=== PATIENT | female | born 1990 | race Caucasian/White ===

== ENCOUNTER 2025-05-15 14:38 | Outpatient (REF) | payer BC, SELFPAY ==
--- OUTSIDE RECORDS SUMMARY | 2025-05-15 13:00 | XMS_ITS | Encounter Summary ---
Author Organization [facility] Address [address] [place] [address] Care Team Providers Care Trash Truck Driver Name Role Phone Jignesh, Keith Henderson MD Primary Care Provider Reason for Visit * ReasonCommentsGynecologic Exam Encounter Details DateTypeDepartmentCare Team (Latest Contact Info)Raqullkxcvy43/01/2025 1:00 PM ESTProcedure Visit [facility] [address] [facility] [address] Esthela Morillo PA [address] [facility] [address] [place], [facility]11 Well woman exam with routine gynecological exam; H/O tubal ligation Social History Tobacco UseTypesPacks/DayYears UsedDateSmoking Tobacco: NeverAlcohol UseStandard Drinks/WeekCommentsNot Currently0 (1 standard drink = 0.6 oz pure alcohol) occasionalCommentsNoSex and Gender InformationValueDate RecordedSex Assigned at BirthNot on fileLegal CggFzpqod55/15/2023 11:47 PM EDTGender IdentityNot on fileSexual OrientationNot on filedocumented as of this encounter Last Filed Vital Signs Vital SignReadingTime TakenCommentsBlood Gyygpfss252/7005/15/2025 1:13 PM EST Pulse--Temperature--Respiratory Rate--Oxygen Saturation--Inhaled Oxygen Concentration--Gtsyuh60.8 kg (145 lb)05/15/2025 1:13 PM APYArgfzg280.9 cm (4' 11 )05/15/2025 1:13 PM ESTBody Mass Index29.29107/16/2024 1:13 PM ESTdocumented in this encounter Progress Notes * CHANDLER Boone - 05/15/2025 1:00 PM EST Reason for Appointment: Patient ID: Angie Kenny is a 35 y.o. female who presents for Gynecologic Exam Patient presents today for Annual Exam. MEDICATIONS Current Outpatient Medications Medication Instructions Allergy Relief 10 mg, Oral, Daily PRN FLUoxetine (PROZAC) 10 mg, Oral, Daily fluticasone (Flonase) 50 MCG/ACT nasal spray SHAKE LIQUID AND USE 2 SPRAYS IN EACH NOSTRIL EVERY DAY FOR 14 DAYS Levonorgestrel (Mirena, 52 MG,) 20 MCG/DAY intrauterine device as directed Intrauterine phentermine (ADIPEX-P) 37.5 mg, Oral, Daily before breakfast phentermine (ADIPEX-P) 37.5 mg, Oral, Daily before breakfast phentermine (ADIPEX-P) 37.5 mg, Oral, Daily before breakfast ALLERGIES No Known Allergies PROBLEMS Active Ambulatory Problems Diagnosis Date Noted Metrorrhagia 12/17/2022 Obesity 12/17/2022 depression 12/17/2022 Resolved Ambulatory Problems Diagnosis Date Noted No Resolved Ambulatory Problems Past Medical History: Diagnosis Date Depression screening Encounter for gynecological examination without abnormal finding In vitro fertilization Intrauterine device surveillance Obesity (BMI 30-39.9) Post depression HISTORY PAST MEDICAL HISTORY SOCIAL HISTORY Past Medical History: Diagnosis Date Depression screening Encounter for gynecological examination without abnormal finding In vitro fertilization Intrauterine device surveillance Obesity (BMI 30-39.9) Post depression Social History Tobacco Use Smoking status: Never Smokeless tobacco: Not on file Substance Use Topics Alcohol use: Not Currently Comment: occasional Drug use: Never FAMILY HISTORY Family History Problem Relation Name Age of Onset Diabetes Mother Heart disease Father No Known Problems Daughter No Known Problems Son Diabetes Maternal Grandmother SURGICAL HISTORY Past Surgical History: Procedure Laterality Date SECTION, LOW TRANSVERSE x2 POLYPECTOMY 07/2018 [facility] [place] TUBAL LIGATION 03/2016 REVIEW OF SYSTEMS Review of Systems: Review of Systems Constitutional: Negative. HENT: Negative. Eyes: Negative. Respiratory: Negative. Cardiovascular: Negative. Gastrointestinal: Negative. Genitourinary: Negative. Musculoskeletal: Negative. Skin: Negative. Neurological: Negative. All other systems reviewed and are negative. Hematological: Negative. Endocrine: Negative. Allergic/Immunologic: Negative. OBJECTIVE Objective: Physical Exam Constitutional: Appearance: Normal appearance. She is well-developed. Genitourinary: Vulva normal. Right Adnexa: not tender and no mass present. Left Adnexa: not tender and no mass present. No cervical discharge. IUD strings visualized. Breasts: Breasts are soft. Right: Normal. Left: Normal. HENT: Head: Normocephalic. Nose: Nose normal. Mouth/Throat: Mouth: Mucous membranes are moist. Cardiovascular: Rate and Rhythm: Normal rate and regular rhythm. Pulmonary: Effort: Pulmonary effort is normal. Breath sounds: Normal breath sounds. Abdominal: General: Bowel sounds are normal. There is no distension. Palpations: Abdomen is soft. Tenderness: There is no abdominal tenderness. There is no guarding or rebound. Musculoskeletal: General: No swelling. Normal range of motion. Cervical back: Normal range of motion. Right lower leg: No edema. Left lower leg: No edema. Neurological: General: No focal deficit present. Mental Status: She is alert and oriented to person, place, and time. Skin: General: Skin is warm and dry. Psychiatric: Mood and Affect: Mood normal. Behavior: Behavior normal. Vitals and nursing note reviewed. Exam conducted with a receiving manager present. Vitals: Estimated body mass index is 29.51 kg/m?? as calculated from the following: Height as of 12/01/23: 4' 11 . Weight as of 02/06/25: 146 lb 1.9 oz. BP: No LMP recorded. Patient has had an implant. Assessment/Plan ICD-10-CM 1. Well woman exam with routine gynecological exam Z01.419 Pap Smear HPV DNA probe, amplified 2. H/O tubal ligation Z98.51 Assessment/Plan Annual Exam: Patient presents today for an annual exam. Patient states she is doing well and has no complaints. Pap was obtained without difficulty. Orders Placed This Encounter Procedures HPV DNA probe, amplified Follow Up: Patient is to return in one year for annual unless needed otherwise. Documented by Edilia Alejandre MA on behalf of: CHANDLER Boone documented in this encounter Plan of Treatment DateTypeDepartmentCare Team (Latest Contact Info)Hgcmsrzgoyl89/07/2026 9:00 AM ESTProcedure Visit [facility] [address] [facility] [place] [phone] Esthela Morillo PA [address] [facility] [place] [address] NameTypePriorityAssociated DiagnosesOrder SchedulePap SmearPathology and CytologyRoutine Well woman exam with routine gynecological exam Ordered: 05/15/2025HPV DNA probe, amplifiedMicrobiologyRoutine Well woman exam with routine gynecological exam Ordered: 05/15/2025documented as of this encounter Visit Diagnoses Diagnosis Well woman exam with routine gynecological exam Routine gynecological examination H/O tubal ligation documented in this encounter Care Teams Team MemberRelationshipSpecialtyStart DateEnd Date Keith Egan MD [address] [place] [id number] PCP - GeneralFamily Medicine11/24/22documented as of this encounter
--- OUTSIDE RECORDS SUMMARY | 2025-05-15 14:46 | XMS_ITS | Clinical Summary ---
Author Organization [facility] Address [address] [place] [place] [address] Care Team Providers Care Pyrotechnics Press Tender Name Role Phone Keith Egan MD Primary Care Provider [phone] Allergies No known active allergies Medications MedicationSigDispense QuantityRefillsLast FilledStart DateEnd DateStatus FLUoxetine (PROzac) 10 MG capsule Take 10 mg by mouth in the morning.11/24/2022ctive Levonorgestrel (Mirena, 52 MG,) 20 MCG/DAY intrauterine device as directed IntrauterineActive fluticasone (Flonase) 50 MCG/ACT nasal spray SHAKE LIQUID AND USE 2 SPRAYS IN EACH NOSTRIL EVERY DAY FOR 14 DAYS04/26/2023 Active Allergy Relief 10 MG tablet Take 10 mg by mouth Daily as luehum8108/12/2023ctive phentermine (Adipex-P) 37.5 MG tablet Indications:Encounter for weight managementTake 1 tablet (37.5 mg) by mouth in the morning. Take before meals. 30 tablet 11/02/2023ctive phentermine (Adipex-P) 37.5 MG tablet Indications:Encounter for weight managementTake 1 tablet (37.5 mg) by mouth in the morning. Take before meals. 30 tablet 12/01/2023ctive phentermine (Adipex-P) 37.5 MG tablet Indications:Encounter for weight managementTake 1 tablet (37.5 mg) by mouth in the morning. Take before meals. 90 tablet 12/28/2023ctiveHospital, Clinic, or Other Facility Administered Medication Ordered DoseRouteFrequencyStart DateEnd DateStatus Levonorgestrel intrauterine device 52 mg Indications:Encounter for IUD htnnrcmoh16 swTPEsgxaulicm81/25/202508/ Active Active Problems ProblemNoted DateDiagnosed AtaeNmwgfrchkouu00/05/2467Nnmeytx84/05/2023ostpartum rmxwdkvwbe26/05/2023 Encounters DateTypeDepartmentCare HjiwRawzqoyugim66/01/2025 1:00 PM ESTProcedure Visit [facility] [address] [place] [address] Esthela Morillo PA Well woman exam with routine gynecological exam; H/O tubal /01/2025amboo flowsheet [facility] [address] [place] [address] Esthela Morillo PA from Last 3 Months Family History Medical HistoryRelationNameCommentsNo Known ProblemsDaughterHeart diseaseFather DiabetesMaternal GrandmotherDiabetesMotherNo Known ProblemsSonRelationNameStatus CommentsDaughterAlive1 daughterFatherAliveMaternal GrandmotherMotherAliveSon Alive1 son Social History Tobacco UseTypesPacks/DayYears UsedDateSmoking Tobacco: NeverAlcohol UseStandard Drinks/WeekCommentsNot Currently0 (1 standard drink = 0.6 oz pure alcohol) occasionalCommentsNoSex and Gender InformationValueDate RecordedSex Assigned at BirthNot on fileLegal OxuYblalu37/15/2023 11:47 PM EDTGender IdentityNot on fileSexual OrientationNot on file Last Filed Vital Signs Vital SignReadingTime TakenCommentsBlood Jnpdqjae273/7005/15/2025 1:13 PM EST Pulse--Temperature--Respiratory Rate--Oxygen Saturation--Inhaled Oxygen Concentration--Wntusl23.8 kg (145 lb)05/15/2025 1:13 PM EPIGcnnkm831.9 cm (4' 11 )05/15/2025 1:13 PM ESTBody Mass Index29.29107/16/2024 1:13 PM EST Plan of Treatment DateTypeDepartmentCare Team (Latest Contact Info)Uvseichmunn88/07/2026 9:00 AM ESTProcedure Visit [facility] [address] [place] [address] Esthela Morillo PA [address] [facility] [address] [place], [place] [id number] Health MaintenanceDue DateLast DoneCommentsCOVID-19 Vaccine (2024- season) /, 10/05/2020Influenza Vaccine (#1), 03/28/2019, 04/15/2012Cervical Cancer Szfdvhzso15/30/2028HPV/Fffwjs2907/14/2027Pap Smearneumococcal Vaccine: Pediatrics (0 to 5 Years) and At- Risk Patients (6 to 64 Years)Aged OutNo longer eligible based on patient's age to complete this topic Procedures Procedure NamePriorityDate/TimeAssociated DiagnosisCommentsPAP SMEARRoutine 07/14/2022 12:00 AM ESTfrom Last 3 Months or Most Recently Relevant to Health Maintenance Results * Pap Smear (07/14/2022 12:00 AM EST)Specimen (Source)Anatomical Location / LateralityCollection Method / VolumeCollection TimeReceived TimeSwabCervical swab / Unknown Narrative Authorizing ProviderResult TypeResult StatusHistorical Provider MDLAB CYTOLOGY ORDERABLESFinal ResultPerforming OrganizationAddressCity/State/ZIP CodePhone Number EXTERNAL LAB from Last 3 Months or Most Recently Relevant to Health Maintenance Insurance Care Teams Team MemberRelationshipSpecialtyStart [place] [address] [place] [address]. [place] [address] PCP - GeneralFamily Medicine11/24/22
--- OUTSIDE RECORDS SUMMARY | 2025-05-15 14:46 | XMS_ITS | Encounter Summary ---
Author Organization [facility] Address [address] [place] [address] Care Team Providers Care Inside Outside Sales Representative Name Role Phone Jignesh, Keith Henderson MD Primary Care Provider [phone] Encounter Details DateTypeDepartmentCare Team (Latest Contact Info)Gdbulihoquy92/01/2025amboo flowsheet [facility] [address] [place] [address] [place] [address] Esthela Morillo PA [address] [facility] [address] [place], [facility]11 Social History Tobacco UseTypesPacks/DayYears UsedDateSmoking Tobacco: NeverAlcohol UseStandard Drinks/WeekCommentsNot Currently0 (1 standard drink = 0.6 oz pure alcohol) occasionalCommentsNoSex and Gender InformationValueDate RecordedSex Assigned at BirthNot on fileLegal GzaEqcloz36/15/2023 11:47 PM EDTGender IdentityNot on fileSexual OrientationNot on filedocumented as of this encounter Plan of Treatment DateTypeDepartmentCare Team (Latest Contact Info)Kwpwmdihmwn46/07/2026 9:00 AM ESTProcedure Visit [facility] [address] [facility] [place] [address] Esthela Morillo, PA [address] [facility] [place] [address] documented as of this encounter Visit Diagnoses Not on filedocumented in this encounter Care Teams Team MemberRelationshipSpecialtyStart DateEnd Date Keith Egan MD [facility] [place] [address] PCP - GeneralFamily Medicine11/24/22documented as of this encounter
[2025-05-17 14:08] LABS: Age Gdln ACOG Testing Note (.); IGP, Aptima HPV, rfx 16/18,45 Note (.)
== END 2025-05-15 14:39 | disposition home or self-care (01) ==
LOC: LAB 14:38
PROVIDERS: Visit Provider Physician Assistant
DX: Z01.419 Encounter for gynecological examination (general) (routine) without abnormal findings (principal)
CPT/HCPCS: 88175